=== PATIENT | female | born 1995 | race Caucasian/White ===

== ENCOUNTER 2021-05-03 19:09 | Emergency (ER) | payer OTHER ==
[~2021-05-03] VITALS: Ht 165.1 cm; Wt 79.4 kg
[2021-05-03 19:33] LABS: URINE BILIRUBIN NEGATIVE (Negative); URINE BLOOD TRACE (Negative); URINE CLARITY SL CLOUDY; URINE COLOR YELLOW; URINE GLUCOSE-RANDOM NEGATIVE (Negative); URINE KETONES NEGATIVE (Negative); URINE PROTEIN NEGATIVE (Negative); URINE SPECIFIC GRAVITY 1.015 (1.005-1.030)
[2021-05-03 19:34] LABS: URINE LEUKOCYTES-REFLEX 2+ (Negative); URINE NITRITE-REFLEX POSITIVE (Negative)
[2021-05-03 19:45] LABS: MUCUS 0-3 Light strn/LPF (None Seen); SQUAMOUS >10 Many /LPF (0-3)
[2021-05-03 19:46] LABS: URINE WBC-REFLEX >25 Many /HPF (0-5)
[2021-05-03 19:48] LABS: BACTERIA-REFLEX 1-9 Few /HPF (None Seen); CASTS None Seen /LPF (None Seen); CRYSTALS None Seen /LPF (None Seen); URINE RBC 0-2 Rare /HPF (0-2)
[2021-05-03] MEDS ORDERED: MACROBID 100 M100 MG PO ×2 (19:53→19:54)
[2021-05-03 20:20] VITALS: BP 125/70
== END 2021-05-03 20:20 | disposition home or self-care (01) ==
LOC: M.ERS 19:09
PROVIDERS: Physician Assistant
DX: N39.0 Urinary tract infection, site not specified (principal); Z88.1 Allergy status to other antibiotic agents